=== PATIENT | female | born 1970 | race Caucasian/White ===

== ENCOUNTER 2017-03-14 00:48 | Emergency (ER) | payer SELFPAY ==
[~2017-03-14] VITALS: Ht 162.6 cm; Wt 76.7 kg
[~2017-03-14 00:48] MED LIST: ADULT LOW DOSE81 MG PO; ANTIVERT25 MG PO; ASPIRIN EC325 MG PO; AUGMENTIN 875-1 EACH PO; CEPHALEXIN500 MG PO; DOXYCYCLINE HY100 MG PO; KEFLEX500 MG PO; LEVAQUIN500 MG PO; LEXAPRO10 MG PO; LISINOPRIL10 MG PO; LOSARTAN-HCTZ1 EACH PO; NORCO 5-325 TA1 EACH PO; TRANSDERM-SCOP1 EA TD; VICODIN 5-5001 EACH PO
[2017-03-14] MEDS ORDERED: ASPIRIN325 MG PO (01:06)
[2017-03-14] MEDS ORDERED: TRAMADOL HCL50 MG PO (02:28)
--- NOTE | 2017-03-15 15:46 | EKG ---
[facility] [address] [facility] [place] [address] Signed Normal sinus rhythm Right atrial enlargement Left axis deviation Possible Anterior infarct , age undetermined Abnormal ECG No previous ECGs available Confirmed by SALLY PRESTON MD ([id number]) on 03/15/2017 3:46:18 PM Electronically Signed By: SALLY PRESTON MD 03/15/17 1546 PATIENT NAME: JENARO CAMACHO KRISTY Electrocardiogram DATE OF : 68 PHYSICIAN: SALLY PRESTON MD REPORT #: [id number] REPORT IS CONFIDENTIAL AND NOT TO BE RELEASED WITHOUT AUTHORIZATION
== END 2017-03-14 03:16 | disposition home or self-care (01) ==
LOC: ED 00:48
DX: R07.9 Chest pain, unspecified (principal); I10 Essential (primary) hypertension; F17.200 Nicotine dependence, unspecified, uncomplicated; Z88.2 Allergy status to sulfonamides; Z79.899 Other long term (current) drug therapy
CPT/HCPCS: 71010; 80053; 84484; 85025; 93005; 93010; 96374; 99283; J1885

== ENCOUNTER 2017-05-24 18:43 | Emergency (ER) | payer SELFPAY ==
[~2017-05-24] VITALS: Ht 162.6 cm; Wt 76.7 kg
[~2017-05-24 18:43] MED LIST changes: +ASPIRIN325 MG PO; +TRAMADOL HCL50 MG PO
== END 2017-05-24 19:08 | disposition home or self-care (01) ==
LOC: ED 18:43
DX: H57.11 Ocular pain, right eye (principal); I10 Essential (primary) hypertension; F17.200 Nicotine dependence, unspecified, uncomplicated; Z88.2 Allergy status to sulfonamides
CPT/HCPCS: 99282

== ENCOUNTER 2018-01-02 18:00 | Emergency (ER) | payer OTHER ==
[~2018-01-02] VITALS: Ht 162.6 cm; Wt 77.1 kg
--- OUTSIDE RECORDS SUMMARY | ~2018-01-02 | XMS | Clinical Summary ---
Demographics + + + | Address | [address] | | | [place] [address] | + + + | Home Phone | | + + + | Preferred Language | Unknown | + + + | Marital Status | Unknown | + + + | Mandaen Affiliation | Unknown | + + + | Race | Unknown | + + + | Ethnic Group | Unknown | + + + Author + + + | Author | [facility] | | | and [place] | + + + | Organization | [facility] | | | and [place] | + + + | Address | Unknown | + + + | Phone | Unavailable | + + + Care Team Providers + +------+ + | Care Engraver Apprentice Decorative Name | Role | Phone | + +------+ + PP | Unavailable | + +------+ + Allergies + + + +--------+ + | Active Allergy | Reactions | Severity | Noted | Comments | | | | | Date | | + + + +--------+ + | Sulfa Antibiotics | | | | | + + + +--------+ + Current Medications + + +-------+---------+------+------+-------+ | Prescription | Sig. | Disp. | Refills | Star | End | Statu | | | | | | t | Date | s | | | | | | Date | | | + + +-------+---------+------+------+-------+ | | Take 10-12.5 mg by | | | 03/15 | | Activ | | lisinopril-hydrochlo | mouth Daily. | | | 12/02 | | e | | rothiazide | | | | 12 | | | | (ZESTORETIC) 10-12.5 | | | | | | | | MG per tablet | | | | | | | + + +-------+---------+------+------+-------+ | ipratropium | 2 puffs every 4 | | | 07/1 | | Activ | | (ATROVENT) 0.03% | hours as needed | | | 3/20 | | e | | nasal spray | | | | 12 | | | + + +-------+---------+------+------+-------+ | cyclobenzaprine | Take 10 mg by mouth | | | 07/1 | | Activ | | (FLEXERIL) 10 mg | Daily. | | | 3/20 | | e | | tablet | | | | 12 | | | + + +-------+---------+------+------+-------+ | | Take 7.5-325 mg by | | | 07/1 | | Activ | | HYDROcodone-acetamin | mouth 3 times daily. | | | 3/20 | | e | | ophen (NORCO) | | | | 12 | | | | 7.5-325 mg per | | | | | | | | tablet | | | | | | | + + +-------+---------+------+------+-------+ | ammonium lactate | Use as directed | | | 07/ | | Activ | | (LAC-HYDRIN) 12% | | | | 320 | | e | | lotion | | | | 12 | | | + + +-------+---------+------+------+-------+ | naproxen | Take 500 mg by mouth | | | 03/15 | | Activ | | (NAPROSYN) 500 mg | 2 times daily. | | | 320 | | e | | tablet | | | | 12 | | | + + +-------+---------+------+------+-------+ Active Problems + + + | Problem | Noted Date | + + + | PALPITATIONS | | + + + | HYPERTENSION, BENIGN ESSENTIAL | | + + + | TOBACCO USER | | + + + | HERNIATED LUMBAR DISC | | + + + Social History + +-------+ +--------+------+ | Tobacco Use | Types | Packs/Day | Years | Date | | | | | Used | | + +-------+ +--------+------+ | Never Assessed | | | | | + +-------+ +--------+------+ + + + | Sex Assigned at | Date Recorded | | | | + + + | Not on file | | + + + Plan of Treatment + + + + + | Health Maintenance | Due Date | Last Done | Comments | + + + + + | Vaccine: | | | | | Dtap/Tdap/Td (1 - | 9 | | | | Tdap) | | | | + + + + + | CERVICAL CANCER | | | | | SCREENING (PAP EVERY | 1 | | | | 3 YEARS 21-64 ) | | | | + + + + + | Vaccine: Influenza | | | | | (Season Ended) | 8 | | | + + + + + Results Not on filefrom Last 3 Months"
[2018-01-02] MEDS ORDERED: ZESTRIL5 MG PO (20:22)
[2018-01-02] MEDS ORDERED: NORCO 5-325 TA1 EACH PO (20:22)
== END 2018-01-02 20:36 | disposition home or self-care (01) ==
LOC: ED 18:00
DX: R51 Headache (principal); M62.89 Other specified disorders of muscle; M62.838 Other muscle spasm; I10 Essential (primary) hypertension; F17.200 Nicotine dependence, unspecified, uncomplicated; Z88.2 Allergy status to sulfonamides
CPT/HCPCS: 96372; 99283; J1885

== ENCOUNTER 2018-03-11 06:24 | Emergency (ER) | payer OTHER ==
[~2018-03-11] VITALS: Ht 162.6 cm; Wt 77.1 kg
[~2018-03-11 06:24] MED LIST changes: +ZESTRIL5 MG PO
== END 2018-03-11 08:45 | disposition home or self-care (01) ==
LOC: ED 06:24
DX: I10 Essential (primary) hypertension (principal); R42 Dizziness and giddiness; J45.909 Unspecified asthma, uncomplicated; F17.200 Nicotine dependence, unspecified, uncomplicated; Z88.2 Allergy status to sulfonamides; Z79.899 Other long term (current) drug therapy
CPT/HCPCS: 36415; 70450; 80053; 81001; 85025; 99284

== ENCOUNTER → 2019-06-08 | Emergency (ER) | payer OTHER ==
[~2019-06-08] VITALS: Ht 162.6 cm; Wt 69.8 kg
== END ==
LOC: ED 03:06
DX: J06.9 Acute upper respiratory infection, unspecified (principal); F41.9 Anxiety disorder, unspecified; Z91.19 Patient's noncompliance with other medical treatment and regimen; I10 Essential (primary) hypertension; F17.200 Nicotine dependence, unspecified, uncomplicated; Z88.2 Allergy status to sulfonamides; Z79.899 Other long term (current) drug therapy
CPT/HCPCS: 99283

== ENCOUNTER 2021-02-27 20:03 | Emergency (ER) | payer OTHER ==
[~2021-02-27] VITALS: Ht 162.6 cm; Wt 74.8 kg
[2021-02-27] MEDS ORDERED: ZOFRAN4 MG PO (23:27)
[2021-02-27] MEDS ORDERED: HYDROCODON-ACE1 EA10 PO (23:27)
== END 2021-02-27 23:41 | disposition home or self-care (01) ==
LOC: ED 20:03
DX: N83.202 Unspecified ovarian cyst, left side (principal); I10 Essential (primary) hypertension; J45.909 Unspecified asthma, uncomplicated; F17.200 Nicotine dependence, unspecified, uncomplicated; Z88.2 Allergy status to sulfonamides
CPT/HCPCS: 74177; 80053; 81001; 83690; 84703; 85025; 96375; 96376; 99284-25; J1170; J2405; J7030; Q9967

== ENCOUNTER 2021-05-11 21:36 | Day surgery (SDC) | payer OTHER ==
[~2021-05-11] VITALS: Ht 162.6 cm; Wt 80.4 kg
[~2021-05-11 21:36] MED LIST changes: +HYDROCODON-ACE1 EA10 PO; +ZOFRAN4 MG PO
--- NOTE | 2021-05-12 00:45 | NUR ---
REPORT RECEIVED FROM ER NURSE KIA, PATIENT IS GOING TO THE OR THEN OVER TO MED SURG 109. PER KIA RN, PATIENT GIVEN DILAUDID, ZOFRAN, TORADOL, KETAMINE AND IV FLUIDS IN ED, HAD A "WEIRD" REATION TO KETAMINE IN WHICH PATIENT WAS "PRAYING TO RANDALL" AND "THOUGHT SHE WAS DYING" PATIENT ALOS PLACED ON 2 LITERS OZ NC FOR SATS IN THE 80'S POST IV PAIN MEDS.
--- NOTE | 2021-05-12 02:40 | NUR ---
05/12/21 0240 Nicolasa Eid 0235 PATIENT ARRIVES TO PACU UNRESPONSIVE TO PAIN, ORAL AIRWAY IN PLACE. RESP EVEN AND UNLABORED, NEEDS OCCASIONAL JAW THRUST, MASK AT 6 LITERS.
--- NOTE | 2021-05-12 03:28 | NUR ---
PT ARRIVES TO FLOOR VIA BED FROM SURGERY. PT DROWSY AND SHIVERING. ADMISSION PROCESS COMPLETE. PT UP TO BSC WITH 1 PA. TOLERATED WELL. PT ORIENTED TO ROOM, CALL LIGHT USE, POC FOR THIS SHIFT. PT DENIES FURTHER NEEDS, QUESTIONS, OR CONCERNS. CALL LIGHT IN PT'S REACH. PRIMARY RN AT BEDSIDE.
--- NOTE | 2021-05-12 03:37 | NUR ---
PATIENT NEEDED TO VOID AFTER ADMISSSION, USED BEDSIDE COMMODE WITH 1 PERSON ASSIST STANDING BY. PATIENT VOIDED 300 ML DARK URINE, SOME BLOOD TINGE TO IT. PLACED BACK TO BED AND INFORMED PATIENT SHE WILL BE GETTING VITALS EVERY HOUR FOR THE NET SEVERAL HOURS AND EXPLAINED THE SCDS TO HER, THEY ARE ON HER AND TURNED ON. CALL LIGHT IN REACH INSTRUCTED ON USE. DENIES NEED FOR PAIN MED, DENIES NAUSEA.
--- NOTE | 2021-05-12 05:10 | NUR ---
PT STATES THAT HER FRIEND PRIYANKA STEIN CAN BE TOLD INFORMATION ABOUT THE PATIENT WHEN SHE CALLS.
--- NOTE | 2021-05-12 05:17 | NUR ---
PT STATES SHE HAS 3/10 ABD PAIN, PRN AIN MED PROVIDED. VS COMPLETED, BROTH AND JELLO PROVIDED. NO OTHER NEEDS. CALL LIGHT IN REACH.
--- NOTE | 2021-05-12 06:31 | NUR ---
PATIENT WAS ADMITTED FROM DR COURTNEY FOR LEFT OVARIAN TORSION, WENT FROM THE ED TO OR HAD LEFT OVARY AND TUBE REMOVED. PATIENT IS ON MAINTENANCE FLUIDS AND HAS BEEN UPT UP TO VOID 3 TIMES. DENIES NAUSEA. LAP SURGICAL SITES X 3 COVERED WITH BANDAIDS, SOME DRAINAGE BUT INTACT. REPORTING PAIN IS "SO MUCH BETTER NOW" SIPPING ORAL FLUIDS CLEAR DIET, ADVANCE TOLERATED.
--- NOTE | 2021-05-12 06:50 | NUR ---
PT HAS NOT HAD PAIN RELIEF WITH ONE TABLET OF ORDERED NORCO. 2ND TABLET PROVIDED PER ORDER. PT DECLINES MORPHINE. NO OTHER NEEDS. CALL LIGHT IN REACH.
--- NOTE | 2021-05-12 09:55 | NUR ---
THIS RN IN TO ASSESS PT. PT LAYING IN BED ALERT AND ORIENTED WITH FRIEND AT BEDSIDE. PT STATES SHE IS BEGINNING TO HAVE AN INCREASE IN PAIN AND RATES IT A 2/10. PT THEN ASSESSED AT THIS TIME, LAP SITES INTACT, LAP SITE BELOW UMBILICUS CONTAINS BLOOD BUT HAS NO SIGNS OF ACTIVE DRAINAGE. PULSES STRONG, BOWEL TONES ACTIVE. ICE CREAM ORDERED FOR PT AT THIS TIME PER HER REQUEST. PT REPORTS NO FURTHER NEEDS WHEN ASKED AT THIS TIME, WILL CONTINUE PLAN OF CARE. CALL LIGHT IN REACH, BED IN LOWEST POSITION, IVF INFUSING ORDERED.
--- NOTE | 2021-05-12 10:04 | NUR ---
THIS RN IN TO CHECK ON PT, PT LAYING IN BED AWAKE AND ALERT, IVF INFUSING. PT PROVIDED WITH CRACKERS, PUDDING, APPLEASAUCE AT THIS TIME TO EAT. PT REPORTS NO FURTHER NEEDS AT THIS TIME WHEN ASKED, WILL CONTINUE PLAN OF CARE.
--- NOTE | 2021-05-12 10:28 | NUR ---
THIS RN IN TO CHECK ON PT. PT FINISHED EATING SOME OF THE SNACKS PROVIDED, PT REPORTS NO ISSUES WHEN EATING THEM. PT REPORTS NO FEELINGS OF NAUSEA AT THIS TIME WELL. PT REPORTS NO FURTHER NEEDS AT THIS TIME WHEN ASKED. IVF INFUSING ORDERED, CALL LIGHT IN REACH, BED IN LOWEST POSITION, WILL CONTINUE PLAN OF CARE.
--- NOTE | 2021-05-12 10:36 | NUR ---
THIS RN IN TO CHECK ON PT'S PAIN LEVEL. PT STATES ITS AT A 3/10 BUT FEELS IF IT'S INCREASING, PT REQUESTED PRN NORCO TO STAY ON TOP OF PAIN. 2 TABLETS ADMINISTERED AT THIS TIME PER HER REQUEST. PT REPORTS NO FURTHER NEEDS AT THIS TIME AND STATES SHE HAS ORDERED A SANDWICH FOR LUNCH, PT EATING HER SNACKS AT THIS TIME AND RESTING IN BED. WILL CONTINUE PLAN OF CARE. CALL LIGHT IN REACH, BED IN LOWEST POSITION.
--- NOTE | 2021-05-12 10:40 | OR ---
[facility] [address] [place], [place] [address] Signed DATE OF OPERATION: 05/12/2021 SURGEON: Maciej King MD Patient of Dr. King PREOPERATIVE DIAGNOSIS: Left adnexal mass, probable torsion. POSTOPERATIVE DIAGNOSES: 1. Left adnexal mass, probable torsion. 2. Torsion of the left tube and ovary. PROCEDURE: Laparoscopic left salpingo-oophorectomy. SOLUTION ENGINEER: Dr. Rodgers. ANESTHESIA: General. ESTIMATED BLOOD LOSS: 10 mL. COMPLICATIONS: None. DRAINS: None. FINDINGS: Cervix thick. Slightly enlarged fibroid uterus. The anterior cul-de-sac was free of any endometriosis or adhesions. Posterior cul-de-sac had small amount of blood present. The left tube and ovary were twisted around with enlarged hemorrhagic tube and ovary consistent with torsion. There were no adhesions present. The right tube was normal in length with a normal-appearing fimbriated end. No adhesions. Right ovary is of normal size and shape without any evidence endometriosis or adhesions. Appendix appeared normal. No other abdominal or pelvic masses or adhesions were seen. Electronically Signed By: MACIEJ KING MD 05/12/21 1040 PATIENT NAME: JENARO CAMACHO OPERATIVE REPORT DATE OF : 68 REPORT #: [id number] PHYSICIAN: MACIEJ KING MD PCP: NO PRIMARY CARE PHYSICIAN REPORT IS CONFIDENTIAL AND NOT TO BE RELEASED WITHOUT AUTHORIZATION [facility] [address] [place], [place] [address] Signed DESCRIPTION OF PROCEDURE: The patient was brought to the operating room and placed in supine position. After adequate general anesthesia was obtained, was placed in dorsal lithotomy position, prepped and draped in the usual sterile fashion. Monahan catheter was placed in the bladder and a weighted speculum placed in the vagina. The anterior lip of the cervix was grasped with an Allis clamp and a Hulka clamp carefully introduced through the cervix and attached to the anterior lip of the cervix. The Allis clamp and weighted speculum were removed. Attention was then drawn to the abdomen. A small infraumbilical skin incision was made with a scalpel after injecting the area with 0.25% Marcaine with epinephrine. Subcutaneous tissue was dissected with Metzenbaum scissors and the fascia identified, grasped with hemostats, elevated and nicked with Metzenbaum scissors. The incision was extended in transverse fashion using Metzenbaum scissors. Retention stitch of 0 Vicryl suture placed above and below the incision. Finger dissection was used to separate the abdominal musculature and open the peritoneum. A Memo cannula and sleeve then entered the abdomen under direct visualization. The sleeve balloon was inflated with air and the outer sleeve slid down and tightened in place next to the skin. Two retention stitches were attached to the outer upper sleeve. The trocar was removed. The laparoscope with video attachment entered the abdomen under direct visualization. On the left side, approximately 10 cm lateral to the midline just below the level of the umbilicus the abdomen was transilluminated to avoid any vessels, and then injected with 0.25% Marcaine with epinephrine. After making skin incision, a bladed 5-mm trocar and sleeve entered the abdomen under direct visualization. Trocar was removed and the balloon filled with air. A blunt grasper was inserted. Same procedure was carried out on the right side. The above findings were noted. LigaSure, [place] bipolar cautery forceps were then used for dissection. The tube and ovary were untorsed, so that the infundibulopelvic ligament could be identified. The ureter was noted to be well away from the infundibulopelvic ligament and the infundibulopelvic ligament was cauterized in several places and cut with LigaSure. An Endoloop of 0 Monocryl was then placed around the infundibulopelvic pedicle for hemostasis. The utero-ovarian ligament and fallopian tube were then cauterized in several places and cut, and again with the LigaSure, the peritoneum along the edge connecting the tube and ovary to the sidewall was cauterized and cut between the two pedicles. This the hemorrhagic tube and ovary. A 5 mm laparoscope was then placed through one lateral port and an Endopouch placed through the infraumbilical port and the tube and ovary placed in the Endopouch and the pouch closed. The infraumbilical sleeve was removed and the Endopouch edges pulled out of the incision and the hemorrhagic tube and ovary were taken out by carefully cutting the larger pieces and suctioning out the blood, so that the entire bag could be removed in its entirety without any spillage in the abdomen. This was passed off the table, and then the trocar and sleeve placed back in the Electronically Signed By: MACIEJ KING MD 05/12/21 1040 PATIENT NAME: JENARO CAMACHO OPERATIVE REPORT DATE OF : 68 REPORT #: [id number] PHYSICIAN: MACIEJ KING MD PCP: NO PRIMARY CARE PHYSICIAN REPORT IS CONFIDENTIAL AND NOT TO BE RELEASED WITHOUT AUTHORIZATION [address] [address] Signed abdomen. The balloon re-insufflated and the retention stitches re-attached. The entire pelvis was then irrigated, suctioned and noted to have good hemostasis. The ureter was again identified on the left side and noted to be below the area of dissection. The entire pelvis was irrigated. No other blood was seen, so the procedure was terminated. All instruments were removed from the abdomen. The gas allowed to escape and all the sleeves removed. The infraumbilical fascia was closed using running stitch of 0 Vicryl suture. The two retention stitches were tied together for further support. The 3 skin incisions were then closed with 4-0 Vicryl in subcuticular stitches. The Hulka clamp was removed and the cervix noted to have good hemostasis. Monahan catheter was removed from the bladder. The patient tolerated the procedure well and went to the recovery room in good condition. Sponge, needle, and instrument count correct at the end of the procedure. Again, the left tube and ovary were sent to Pathology for identification. MD JULIA Sanchez/GLEN /[id number] Copies: ~ Electronically Signed By: MACIEJ KING MD 05/12/21 1040 PATIENT NAME: JENARO CAMACHO OPERATIVE REPORT DATE OF : 68 REPORT #: [id number] PHYSICIAN: MACIEJ KING MD PCP: NO PRIMARY CARE PHYSICIAN REPORT IS CONFIDENTIAL AND NOT TO BE RELEASED WITHOUT AUTHORIZATION
[2021-05-12] MEDS ORDERED: HYDROCODON-ACE1 EA10 PO (11:47)
[2021-05-12] MEDS ORDERED: IBUPROFEN800 MG PO (11:48)
== END 2021-05-12 12:10 | disposition home or self-care (01) ==
LOC: ED 21:36 → MS 21:37 → DS 05-12 02:40 → DSVR 05-12 02:40 → DS 05-12 12:10 → MS 05-12 12:10
PROVIDERS: ATTEND General Practice
PROC: 0UB64ZZ Excision of Left Fallopian Tube, Percutaneous Endoscopic Approach (ICD-10-PCS; 2021-05-12)
PROC: 0UT14ZZ Resection of Left Ovary, Percutaneous Endoscopic Approach (ICD-10-PCS; principal; 2021-05-12 00:57)
DX: D27.1 Benign neoplasm of left ovary (principal); N83.53 Torsion of ovary, ovarian pedicle and fallopian tube; F17.200 Nicotine dependence, unspecified, uncomplicated; I10 Essential (primary) hypertension; J45.909 Unspecified asthma, uncomplicated; Z20.822 Contact with and (suspected) exposure to COVID-19; Z88.2 Allergy status to sulfonamides
CPT/HCPCS: 00840; 76830; 76856; 81001; 84703; 85025; 88307; 96374; 96375; 96376; 99285-25; C9803; J0330; J1100; J1170; J1885; J2001; J2405; J2704; J7040; J7121; U0003

== ENCOUNTER 2021-06-21 20:09 | Emergency (ER) | payer OTHER ==
[~2021-06-21] VITALS: Ht 162.6 cm; Wt 78.4 kg
[~2021-06-21 20:09] MED LIST changes: +IBUPROFEN800 MG PO
--- OUTSIDE RECORDS SUMMARY | 2021-06-21 20:12 | XMS ---
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 Holden has no Care Guidelines for this patient. [place] VISIT COUNT (12 MO[address] [facility] [address] [facility] [place] TOTAL 3 NOTE: Visits indicate total known visits. ED/C VISIT TRACKING (12 MO.) 06/21/2021 20:10 [facility] [place] TYPE: Emergency COMPLAINT: - FLU SYMPTOMS 06/21/2021 19:17 [facility] [place] TYPE: Emergency COMPLAINT: - FLU SYMPTOMS 02/27/2021 20:03 [place] [place] TYPE: Emergency COMPLAINT: - FEVER,NAUSEA DIAGNOSES: - Left lower quadrant pain - Allergy status to sulfonamides - Essential (primary) hypertension - Unspecified ovarian cyst, left side - Unspecified asthma, uncomplicated - Nicotine dependence, unspecified, uncomplicated INPATIENT VISIT TRACKING (12 MO.) 05/11/2021 21:37 [facility] [place] TYPE: Observation COMPLAINT: - TORSION OF LEFT OVARY DIAGNOSES: - Essential (primary) hypertension - Nicotine dependence, unspecified, uncomplicated - Allergy status to sulfonamides - Torsion of ovary, ovarian pedicle and fallopian tube - Unspecified asthma, uncomplicated [email or web address]
== END 2021-06-21 20:45 | disposition left against medical advice (07) ==
LOC: ED 20:09
DX: U07.1 COVID-19 (principal); I10 Essential (primary) hypertension; J45.909 Unspecified asthma, uncomplicated; F17.200 Nicotine dependence, unspecified, uncomplicated; Z88.2 Allergy status to sulfonamides
CPT/HCPCS: 99283

== ENCOUNTER 2021-09-06 23:29 | Emergency (ER) | payer OTHER ==
[~2021-09-06] VITALS: Ht 162.6 cm; Wt 79.4 kg
[2021-09-07] MEDS ORDERED: CEFDINIR300 MG PO (00:06)
--- NOTE | 2021-09-08 17:40 | EKG ---
[facility] [address] [facility] [facility] [place] [address] Signed Normal sinus rhythm Possible Left atrial enlargement Left axis deviation Incomplete right bundle branch block Septal infarct (cited on or before 14-MAR-2017) Abnormal ECG When compared with ECG of 14-MAR-2017 00:56, No significant change was found Confirmed by DASHA YBARRA DO ([id number]) on 09/08/2021 5:40:17 PM Electronically Signed By: DASHA YBARRA DO 09/08/21 1740 PATIENT NAME: JENARO CAMACHO KRISTY Electrocardiogram DATE OF : 68 PHYSICIAN: DASHA YBARRA DO REPORT #: [id number] REPORT IS CONFIDENTIAL AND NOT TO BE RELEASED WITHOUT AUTHORIZATION
== END 2021-09-07 02:11 | disposition home or self-care (01) ==
LOC: ED 23:29
DX: J44.1 Chronic obstructive pulmonary disease with (acute) exacerbation (principal); I10 Essential (primary) hypertension; F17.200 Nicotine dependence, unspecified, uncomplicated; Z88.2 Allergy status to sulfonamides; Z79.899 Other long term (current) drug therapy
CPT/HCPCS: 71045; 83880; 84484; 85025; 93005; 93010; 94640; 99285-25

== ENCOUNTER 2022-06-04 19:23 | Emergency (ER) | payer OTHER ==
[~2022-06-04] VITALS: Ht 162.6 cm; Wt 72.7 kg
[~2022-06-04 19:23] MED LIST changes: +CEFDINIR300 MG PO
[2022-06-04] MEDS ORDERED: LISINOPRIL10 MG PO (23:44)
--- NOTE | 2022-06-06 19:56 | EKG ---
[facility] [address] [place] [address] Signed Sinus rhythm with occasional premature ventricular complexes Left axis deviation Inferior infarct , age undetermined Abnormal ECG When compared with ECG of 06-SEP-2021 23:58, premature ventricular complexes are now present Confirmed by Maurice Tineo MD () on 06/06/2022 7:56:04 PM Electronically Signed By: MAURICE TINEO MD 06/06/221955 PATIENT NAME: JENARO CAMACHO KRISTY Electrocardiogram DATE OF : 68 PHYSICIAN: MAURICE TINEO MD REPORT #: [id number] REPORT IS CONFIDENTIAL AND NOT TO BE RELEASED WITHOUT AUTHORIZATION
== END 2022-06-05 00:02 | disposition home or self-care (01) ==
LOC: ED 19:23
DX: I10 Essential (primary) hypertension (principal); I16.0 Hypertensive urgency; J45.909 Unspecified asthma, uncomplicated; F17.200 Nicotine dependence, unspecified, uncomplicated; Z88.2 Allergy status to sulfonamides
CPT/HCPCS: 36415; 71045; 80053; 81001; 83735; 83880; 84484; 85025; 93005; 93010; 96361; 96374; 96375; 99285-25; A9270; J0360; J7121

== ENCOUNTER 2022-07-25 01:55 | Emergency (ER) | payer OTHER ==
[~2022-07-25] VITALS: Ht 162.6 cm; Wt 71.0 kg
[2022-07-25] MEDS ORDERED: HYDROCODON-ACE1 EA10 PO (03:59)
[2022-07-25] MEDS ORDERED: ONDANSETRON ODT8 MG PO (03:59)
[2022-07-25] MEDS ORDERED: PROTONIX40 MG PO (03:59)
[2022-07-25] MEDS ORDERED: CARAFATE1 GM PO (03:59)
== END 2022-07-25 04:47 | disposition home or self-care (01) ==
LOC: ED 01:55
DX: K57.10 Diverticulosis of small intestine without perforation or abscess without bleeding (principal); K85.90 Acute pancreatitis without necrosis or infection, unspecified; J45.909 Unspecified asthma, uncomplicated; F17.200 Nicotine dependence, unspecified, uncomplicated; Z88.2 Allergy status to sulfonamides; Z79.899 Other long term (current) drug therapy; I10 Essential (primary) hypertension
CPT/HCPCS: 36415; 74177; 80053; 81001; 83690; 84703; 85025; 96375; 96376; 99284-25; A9270; C9113; J1170; J2405; J7121; Q9967

== ENCOUNTER 2022-08-20 19:31 | Emergency (ER) | payer OTHER ==
[~2022-08-20] VITALS: Ht 162.6 cm; Wt 68.0 kg
[~2022-08-20 19:31] MED LIST changes: +CARAFATE1 GM PO; +ONDANSETRON ODT8 MG PO; +PROTONIX40 MG PO
--- OUTSIDE RECORDS SUMMARY | 2022-08-20 19:34 | XMS ---
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 Holden has no Care Guidelines for this patient. [place] [facility] [facility] NOTE: Visits indicate total known visits. ED/C VISIT TRACKING (12 MO.) 08/20/2022 19:32 [facility] [place] TYPE: Emergency COMPLAINT: - BLOODY STOOL, FEVER [facility] DIAGNOSES: - lower abd pain and swelling - Constipation - Abdominal Pain - Diverticulosis of small intestine without perforation or abscess without bleeding - Drug induced constipation 07/25/2022 01:55 [facility] [place] TYPE: Emergency COMPLAINT: - ABD PAIN DIAGNOSES: - Nicotine dependence, unspecified, uncomplicated - Epigastric pain - Other superintendent container terminal (current) drug therapy - Diverticulosis of small intestine without perforation or abscess without bleeding - Essential (primary) hypertension - Allergy status to sulfonamides - Acute pancreatitis without necrosis or infection, unspecified - Unspecified asthma, uncomplicated 06/04/2022 19:24 [facility] [place] TYPE: Emergency COMPLAINT: - HIGH BLOOD PRESSURE DIAGNOSES: - Nicotine dependence, unspecified, uncomplicated - Unspecified asthma, uncomplicated - Essential (primary) hypertension - Hypertensive urgency - Chest pain, unspecified - Allergy status to sulfonamides 09/06/2021 23:[address] [facility] [address] [facility] [place] TYPE: Emergency COMPLAINT: - COUGH, CONGESTION DIAGNOSES: - Allergy status to sulfonamides - Essential (primary) hypertension - Other halfway (current) drug therapy - Chronic obstructive pulmonary disease with (acute) exacerbation - Nicotine dependence, unspecified, uncomplicated - COUGH, UNSPECIFIED INPATIENT VISIT TRACKING (12 MO.) No inpatient visits to display in this time frame [email or web address]
[2022-08-20] MEDS ORDERED: ULTRAM50 MG PO (21:39)
[2022-08-20] MEDS ORDERED: PROMETHAZINE12.5 M1 PO (21:39)
== END 2022-08-20 22:21 | disposition home or self-care (01) ==
LOC: ED 19:31
DX: U07.1 COVID-19 (principal); I10 Essential (primary) hypertension; J45.909 Unspecified asthma, uncomplicated; F17.200 Nicotine dependence, unspecified, uncomplicated; Z88.2 Allergy status to sulfonamides; Z79.899 Other long term (current) drug therapy
CPT/HCPCS: 36415; 74177; 80053; 81001; 83690; 84703; 85025; 87502; 96374; 96375; 99284-25; J2270; J2405; J7030; U0003

== ENCOUNTER 2023-11-01 04:05 | Emergency (ER) | payer OTHER ==
[~2023-11-01] VITALS: Ht 162.6 cm; Wt 61.2 kg
[~2023-11-01 04:05] MED LIST changes: +PROMETHAZINE12.5 M1 PO; +ULTRAM50 MG PO
--- OUTSIDE RECORDS SUMMARY | 2023-11-01 04:13 | XMS ---
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 [place] VISIT COUNT (12 MO.) 2 [facility] [address] [place] [address] TOTAL 3 NOTE: Visits indicate total known visits. ED/UCC VISIT TRACKING (12 MO.) 11/01/2023 04:06 [place] [place] TYPE: Emergency COMPLAINT: - ABD PAIN 10/25/2023 03:00 [facility] [place] TYPE: Emergency DIAGNOSES: - Diverticulosis of small intestine without perforation or abscess without bleeding - Epigastric pain - Abdominal Pain 2023 11:36 [facility] [place] TYPE: Emergency DIAGNOSES: - Diverticulosis of small intestine without perforation or abscess without bleeding - Epigastric pain - Left upper quadrant pain - Abdominal Pain INPATIENT VISIT TRACKING (12 MO.) No inpatient visits to display in this time frame [email or web address]
[2023-11-01] MEDS ORDERED: TOPAMAX50 MG PO (04:31)
[2023-11-01] MEDS ORDERED: OMEPRAZOLE20 MG PO (04:32)
[2023-11-01] MEDS ORDERED: LIDOCAINE & ANTACID 35 ML BTL PO ONE (04:45)
[2023-11-01 04:52] LABS: BILIRUBIN, URINE NEGATIVE (negative); BLOOD/HGB, URINE NEGATIVE (Negative); KETONE, URINE NEGATIVE (Negative); LEUK ESTERASE, URINE NEGATIVE (negative); NITRITE, URINE NEGATIVE (negative)
[2023-11-01 04:53] LABS: HEMOGLOBIN 14.7 g/dL (12.0-18.0); MCV 93.2 fl (81-99)
[2023-11-01 04:56] LABS: BASOPHILS 0.7 % (0-2); EOSINOPHILS 5.3 % (0-6); HEMATOCRIT 44.9 % (35.0-50.0); LYMPHOCYTES 20.4 % (24-44); MCH 30.5 (27-36); MCHC 32.8 g/dl (30-36); MONOCYTES 7.2 % (0-12); NEUTROPHILS 66.4 % (39-80); PLATELET COUNT 400 K/uL (140-440); RBC 4.82 M/ul (4.3-5.7); RDW 13.8 (10.5-15.0)
[2023-11-01 05:08] LABS: ALBUMIN/GLOBULIN RATIO 1.08 (1.1-2.4); ANION GAP 14.4 (7-21); BILIRUBIN, TOTAL 0.4 ng/dL (0.2-1.0); BUN/CREATININE RATIO 21.97 (6.0-28.6); CALCIUM 9.5 mg/dL (8.5-10.1); CREATININE, SERUM 0.91 mg/dL (0.55-1.02); POTASSIUM 3.4 mmol/L (3.5-5.1); PROTEIN, TOTAL 7.7 g/dL (6.4-8.2)
[2023-11-01 05:41] VITALS: BP 162/81
== END 2023-11-01 05:43 | disposition home or self-care (01) ==
LOC: ED 04:05
PROVIDERS: Emergency Medicine
DX: K57.10 Diverticulosis of small intestine without perforation or abscess without bleeding (principal); G89.29 Other chronic pain; I10 Essential (primary) hypertension; J45.909 Unspecified asthma, uncomplicated; F17.200 Nicotine dependence, unspecified, uncomplicated; Z88.2 Allergy status to sulfonamides; Z79.899 Other long term (current) drug therapy
CPT/HCPCS: 36415; 80053; 81003; 83690; 85025; 99284